=== PATIENT | male | born 1965 | race Caucasian/White ===

== ENCOUNTER 2022-11-10 18:04 | Emergency (ER) | payer SELFPAY ==
[~2022-11-10] VITALS: Ht 177.8 cm; Wt 80.0 kg
[2022-11-10 18:07] VITALS: BP 131/89
[2022-11-10] MEDS ORDERED: naproxen 500mg tablet PO ONE (20:05)
[2022-11-10] MEDS ORDERED: TADA5TAB2 PO (21:27)
[2022-11-10] MEDS ORDERED: NAPR-56 PO (21:27)
== END 2022-11-10 21:35 | disposition home or self-care (01) ==
LOC: ER 18:04
DX: S39.011A Strain of muscle, fascia and tendon of abdomen, initial encounter (principal); F17.200 Nicotine dependence, unspecified, uncomplicated; X50.0XXA Overexertion from strenuous movement or load, initial encounter; Y93.89 Activity, other specified; Y92.89 Other specified places as the place of occurrence of the external cause; Y99.8 Other external cause status
CPT/HCPCS: 72170; 76870; 93976; 99284

== ENCOUNTER 2023-01-01 23:53 | Emergency (ER) | payer SELFPAY ==
[~2023-01-01] VITALS: Ht 180.3 cm; Wt 76.4 kg
[2023-01-01 23:56] VITALS: BP 137/89
[2023-01-02] MEDS ORDERED: DOXYCYCLINE 100MG CAPSULE PO STA (03:28)
[2023-01-02] MEDS ORDERED: HYDROcodone/acetaminophen 5mg/325mg tablet PO ONE (03:30)
[2023-01-02] MEDS ORDERED: ondansetron 4mg rapidly disintigrating tab PO ONE (03:30)
[2023-01-02] MEDS ORDERED: cephalexin 250mg capsule PO ONE (03:30)
[2023-01-02] MEDS ORDERED: DOXY100C76 PO (04:15)
[2023-01-02] MEDS ORDERED: ONDA8TAB13 PO (04:15)
[2023-01-02] MEDS ORDERED: HYDR-3965 PO (04:15)
[2023-01-02] MEDS ORDERED: CEPH250T PO (04:15)
== END 2023-01-02 04:43 | disposition home or self-care (01) ==
LOC: ER 23:54
DX: L02.412 Cutaneous abscess of left axilla (principal); I50.9 Heart failure, unspecified; Z79.899 Other long term (current) drug therapy
CPT/HCPCS: 10060; 99284; A6266; A6253; A6258; A6449

== ENCOUNTER 2023-01-04 19:45 | Emergency (ER) | payer OTHER ==
[~2023-01-04] VITALS: Ht 180.3 cm; Wt 76.4 kg
[~2023-01-04 19:45] MED LIST: CEPH250T PO; DOXY100C76 PO; HYDR-3965 PO; ONDA8TAB13 PO
[2023-01-04 20:05] VITALS: BP 122/83
== END 2023-01-04 21:28 | disposition home or self-care (01) ==
LOC: ER 19:46
DX: L02.412 Cutaneous abscess of left axilla (principal); U07.1 COVID-19; I50.9 Heart failure, unspecified; Z79.899 Other long term (current) drug therapy
CPT/HCPCS: 99281